=== PATIENT | male | born 1950 | race African-American/Black ===

== ENCOUNTER 2020-08-27 08:18 | Day surgery (SDC) | payer MEDICARE, MEDICAID ==
[2020-08-21 07:58] LABS: EOSINOPHILS % (AUTO) 1.2 % (0.0-3.0); HEMATOCRIT 41.4 % (42.0-52.0); HEMOGLOBIN 13.9 G/DL (14.2-18.0); LYMPHOCYTES % (AUTO) 24.4 % (20.0-45.0); MEAN CORPUSCULAR VOLUME 94 FL (80-99); MONOCYTES % (AUTO) 6.8 % (1.0-10.0); NEUTROPHILS % (AUTO) 66.6 % (45.0-75.0); PLATELET COUNT 228 K/UL (150-450); RED BLOOD COUNT 4.41 M/UL (4.70-6.10); RED CELL DISTRIBUTION WIDTH 12.9 % (11.6-14.8); WHITE BLOOD COUNT 5.8 K/UL (4.8-10.8)
[2020-08-21 08:10] LABS: CALCIUM 9.4 MG/DL (8.5-10.1); CREATININE 1.5 MG/DL (0.55-1.30); POTASSIUM 3.6 MMOL/L (3.5-5.1)
--- NOTE | 2020-08-22 20:59 | Pre-op HX & Phy Repo 2 SIG ---
DATE OF ADMISSION: 08/27/2020 PREOPERATIVE DIAGNOSIS: Macula-off retinal detachment, right eye. BRIEF NOTE: This is the first [facility] admission for patient who is a very nice 69-year-old gentleman who complained of sudden loss of vision in the right eye starting over 3 weeks ago. He was found to have a bullous macula-off retinal detachment on that side. He is admitted for surgery. PAST OCULAR HISTORY: Remarkable for cataract surgery done in both eyes with the right eye being done in March of 2020, in the left eye in 2016. PAST MEDICAL HISTORY: Remarkable for high blood pressure and elevated cholesterol. MEDICATIONS: He says he is taking no medications at this time. ALLERGIES: He has no known allergies. PHYSICAL EXAMINATION: Best vision at the time of the visit was light perception with projection in the right eye and 20/30 in the left with pressures of 16. The anterior segment on the right showed a posterior chamber lens in good position. Similar finding was seen on the left. Visual dumont were remarkable only for light perception on the right. The left showed full dumont. There was an afferent pupillary defect on the right. Funduscopic examination of the right eye showed a large retinal detachment, mainly superiorly that extended through the macula. A small horseshoe tear was noted at the 12:30 position just anterior to the equator. The left fundus was undilated at the patient's request. Through the undilated pupil, the retina was all attached. An ultrasound done on the right eye confirmed the presence of the retinal detachment without masses. ASSESSMENT: Total retinal detachment, right eye. PLAN: The plan is to perform a pars plana vitrectomy with endolaser, endo drainage, and gas fluid exchange. A scleral buckle will be placed if inferior pathology is found. The risks and benefits of surgery have been gone over with the patient with potential for infection, hemorrhage, glaucoma, and remote possibility of loss of the eye. The need for additional surgeries was discussed. The patient understands and consents to the surgery, which will be performed on Tuesday morning. Damien Kilgore M.D. DR: SAMMY JOB#: [id number] CC:
[2020-08-27] VITALS (8 sets, daily range): BP systolic 143–186; BP diastolic 87–97
[~2020-08-27] VITALS: Ht 191.8 cm; Wt 72.6 kg
[~2020-08-27 08:18] MED LIST: prednisoLONE acetate 1% Opth Susp 1ml RIGHT EYE SCH
[2020-08-27] MEDS ORDERED: Phenylephrine 2.5% Op 2ml Soln ONE (08:36)
[2020-08-27] MEDS ORDERED: Cyclopentolate 2% Opth Sol ONE (08:36)
[2020-08-27] MEDS ORDERED: Vigamox Opth Soln 3ml ONE (08:36)
[2020-08-27] MEDS ORDERED: Flurbiprofen 0.03% Opth Sol 2.5ml ONE (08:36)
[2020-08-27] MEDS: Vigamox Opth Soln 3ml RIGHT EYE SCH ×3 (08:47→09:01)
[2020-08-27] MEDS: Flurbiprofen 0.03% Opth Sol 2.5ml RIGHT EYE SCH ×3 (08:47→09:01)
[2020-08-27] MEDS: Phenylephrine 2.5% Op 2ml Soln RIGHT EYE SCH ×3 (08:47→09:01)
[2020-08-27] MEDS: Cyclopentolate 2% Opth Sol RIGHT EYE SCH ×3 (08:48→09:01)
[2020-08-27] MEDS ORDERED: CHOLESTEROL MED PO (08:52)
[2020-08-27] MEDS ORDERED: BP MED PO (08:52)
[2020-08-27] MEDS ORDERED: PLAVIX75 MG ORAL (08:52)
[2020-08-27] MEDS ORDERED: EPINEPHrine 1mg/1ml Amp ONE (09:37)
[2020-08-27] MEDS ORDERED: Kenalog-10 5ml Inj ONE (09:37)
[2020-08-27] MEDS ORDERED: Kenalog-40 1ml Vial ONE (09:37)
[2020-08-27] MEDS ORDERED: Midazolam 2mg/2ml Inj ONE (09:37)
[2020-08-27] MEDS ORDERED: prednisoLONE acetate 1% Opth Susp 1ml ONE (09:37)
[2020-08-27] MEDS ORDERED: Lidocaine 2% MPF 5ml Vial INJ ONE (09:37)
[2020-08-27] MEDS ORDERED: Tetracaine 0.5% Opth 4ml Soln ONE (09:38)
[2020-08-27] MEDS ORDERED: BSS 500ml btl ONE (09:38)
[2020-08-27] MEDS ORDERED: Maxitrol Opth Oint 3.5gm ONE (09:38)
[2020-08-27] MEDS ORDERED: BSS 15ml BTL ONE (09:38)
[2020-08-27] MEDS ORDERED: Povidone-Iodine 5% opth solution ONE (09:38)
[2020-08-27] MEDS ORDERED: Bupivacaine 0.75% 30ml vial INJ ONE (09:39)
[2020-08-27] MEDS ORDERED: Triamcinolone 40mg/ml PF Vial ONE (09:39)
[2020-08-27] MEDS ORDERED: Lidocaine 1% MPF 10mg/ml 5ml ONE (09:39)
[2020-08-27] MEDS ORDERED: Sodium Hyaluronate 10 mg/ml 0.85ml ONE (09:39)
[2020-08-27] MEDS ORDERED: Indocyanine Green 25mg Inj INJ ONE (09:45)
--- NOTE | 2020-08-27 10:04 | Pre-Procedure Note/Attestation ---
Pre-Procedure Note/Attestation Complete Prior to Procedure Planned Procedure: right Procedure Narrative: PPV, endolaser, endodrainage, gas-fluid exchange RIGHT eye Indications for Procedure Pre-Operative Diagnosis: Retinal detachment RIGHT eye Attestation I attest that I discussed the nature of the procedure; its benefits; risks and complications; and alternatives (and the risks and benefits of such alternatives), prior to the procedure, with the patient (or the patient's legal asset protection representative). I attest that, if there was a reasonable possibility of needing a blood transfusion, the patient (or the patient's legal asset protection representative) was given the [facility] standardized written summary, pursuant to the Edwin Beny Blood Safety Act ([place] Health and Safety Code # 1645, as amended). I attest that I re-evaluated the patient just prior to the surgery and that ther e has been no change in the patient's H&P, except as documented below: Damien Kilgore MD Aug 27, 2020 10:04
[2020-08-27] MEDS ORDERED: HYDROcodone/Acetamin 5/325 tab ORAL PRN (10:15)
--- NOTE | 2020-08-27 11:08 | Anethesia Preoperative Eval ---
Anesthesia Pre-op PMH/ROS General Date of Evaluation: Aug 27, 2020 Time of Evaluation: 10:02 Anesthesiologist: Jahaira ASA Score: ASA 3 Mallampati Score Class I : Soft palate, uvula, fauces, pillars visible Class II: Soft palate, uvula, fauces visible Class III: Soft palate, base of uvula visible Class IV: Only hard plate visible Mallampati Classification: Class II Surgeon: Magui Diagnosis: R eye retinal detouchment Surgical Procedure: R eye PPV Anesthesia History: none Social History: smoking - h/o Family History: no anesthesia problems Allergies: Coded Allergies: No Known Allergies (Unverified , 08/27/20) Medications: see eMAR Patient NPO?: Yes Past Medical History Cardiovascular: Reports: HTN; Denies: CAD, [place], valve dz, arrhythmia, other Pulmonary: Denies: asthma, COPD, DANIELA, other Gastrointestinal/Genitourinary: Reports: GERD, CRI - elevated Cr.; Denies: ESRD, other Neurologic/Psychiatric: Reports: CVA - R side weakness, depression/anxiety; Denies: dementia, TIA, other Endocrine: Reports: hypothyroidism HEENT: Reports: cataract (L), cataract (R) - s/p bilateral Sx Hematology/Immune: Denies: anemia, DVT, bleeding disorder, other Musculoskeletal/Integumentary: Reports: OA; Denies: RA, DJD, DDD, edema, other PMH Narrative: as above PSxH Narrative: bilateral cataracts Anesthesia Pre-op Phys. Exam Physician Exam Last Vital Signs Date Time Temp Pulse Resp B/P (MAP) Pulse Ox O2 Delivery O2 Flow Rate FiO2 08/27/20 09:06 97.1 55 20 186/97 97 Room Air Constitutional: NAD Neurologic: other Cardiovascular: RRR, no M/R/G Respiratory: CTA Gastrointestinal: S/NT/ND Airway Exam Mallampati Score: Class II MO: limited Neck: stiff ROM: limited Teeth: missing Dentures: no upper, no lower Anesthesia Pre-op A/P Labs see chart Studies Pre-op Studies: EKG - Sr Risk Assessment & Plan Assessment: ASA 3 Plan: GA with LMA, surgeon request Status Change Before Surgery: No Jasper Campo MD Aug 27, 2020 11:08
[2020-08-27] MEDS ORDERED: fentaNYL 100 mcg/2 mL IV PRN (11:15)
[2020-08-27] MEDS ORDERED: LR 1000ml 1,000 ML IVLG SCH (11:15)
--- NOTE | 2020-08-27 12:04 | Brief Operative Note ---
Immediate Post Operative Note Operative Note Chief Complaint: Loss of vision Right eye Pre-op Diagnosis: Retinal detachment RIGHT eye Procedure: PPV, endodrainage, endolaser (1379 spots), gas fluid exchange RIGHT eye Post-op Diagnosis: same as pre-op Surgeon: Magui Movie Critic: baylee Anesthesiologist: Jahaira Anesthesia: general Specimen: none Complications: none Condition: stable Fluids: per anesthesia Estimated Blood Loss: none Drains: none Implant(s) used?: No Damien Kilgore MD Aug 27, 2020 12:04
--- NOTE | 2020-08-27 12:09 | Immediate Post-Op Evaluation ---
Immediate Post-Op Evalulation Immediate Post-Op Evalulation Procedure: R eye PPV laser treatment fluid to gas exchange Date of Evaluation: Aug 27, 2020 Time of Evaluation: 12:08 IV Fluids: 400 Blood Products: none Estimated Blood Loss: min Urinary Output: none Blood Pressure Systolic: 154 Blood Pressure Diastolic: 86 Pulse Rate: 84 Respiratory Rate: 20 O2 Sat by Pulse Oximetry: 99 Temperature (Fahrenheit): 97.7 Pain Score (1-10): 1 Nausea: No Vomiting: No Complications none Patient Status: reacts, patent, none Hydration Status: adequate Jasper Campo MD Aug 27, 2020 12:09
--- NOTE | 2020-08-27 12:44 | Operative Note - Dictated ---
DATE OF OPERATION: 08/27/2020 PREOPERATIVE DIAGNOSIS: Retinal detachment, right eye. POSTOPERATIVE DIAGNOSIS: Retinal detachment, right eye. PROCEDURES: 1. Pars plana vitrectomy. 2. Endo drainage. 3. Endolaser. 4. Gas fluid exchange, right eye. SURGEON: Damien Kilgore M.D. BOOSTER STATION OPERATOR: None. ANESTHESIA: LMA general. ANESTHESIOLOGIST: Jasper Campo MD. JUSTIFICATION FOR SURGERY: This 69-year-old gentleman with history of cataract surgery, noted a 3-week history of progressively decreasing vision and was found to have retinal detachment. BRIEF NOTE: The patient was brought to the operative room, placed on operating room table in supine position. After a time-out was performed and agreed upon by the staff, general LMA anesthesia was induced by Dr. Campo. The patient was then given a retrobulbar block roughly 5 mL to limit intraoperative anesthetics and postoperative pain. He was then prepped and draped in normal manner. A lid speculum inserted into the right eye. Using a 23-gauge trocar system, cannulas were placed in all except infranasal quadrant. Infusion secured inferotemporally. Vitrectomy was begun posterior to the lens taking care to avoid contact. With the wide-angle viewing system, a central core vitrectomy was done with gentle shaving of the peripheral vitreous leaving a small vitreous skirt. Scleral depression showed a horseshoe tear at about the 11:30 position. This position was noted. Additional patches of lattice degeneration were seen superiorly and inferiorly but no round holes or tears. The Endo cautery was then used to perform a drainage site superior and slightly nasal to the optic nerve. An air-fluid exchange was performed draining subretinal fluid and the flattening the retina nicely. Once this was completed, Endolaser was performed with the aid of a lighted laser probe surrounding the retinal breaks above and patches of lattice degeneration both above and below. Again scleral depression was performed. No other breaks were seen. Laser was then used after further drainage to surround the posterior retinotomy with three rows of laser. A total of 1379 spots were used. At this juncture, a gas-gas exchange was performed at 24% SF6. Once this was completed, the eye was left normotensive as the cannulas were removed and the sclerotomy was closed with 8-0 Vicryl. Please note that during procedure because of clouding, the corneal epithelium was removed with a 69 [place] blade. Subconjunctival Decadron and gentamicin were then injected and topical prednisolone, moxifloxacin, atropine drops, and Maxitrol ointment were instilled. The eye was patched and shielded and the patient was taken to recovery in excellent condition to be placed in a face-down position. There were no complications. Damien Kilgore M.D. DR: Oly JOB#: [id number] CC: Damien Kilgore M.D.; Fax#: [phone]
--- NOTE | 2020-08-27 13:04 | 48 Hour Post Anesthesia Eval ---
Post Anesthesia Evaluation Procedure: R eye PPV laser treatment fluid to gas exchange Date of Evaluation: Aug 27, 2020 Time of Evaluation: 13:03 Blood Pressure Systolic: 148 0: 76 Pulse Rate: 68 Respiratory Rate: 18 Temperature (Fahrenheit): 97.5 O2 Sat by Pulse Oximetry: 99 Airway: patent Nausea: No Vomiting: No Pain Intensity: 1 Hydration Status: adequate Cardiopulmonary Status: stable Mental Status/LOC: patient returned to baseline Follow-up Care/Observations: n/a Post-Anesthesia Complications: none Follow-up care needed: ready to discharge Jasper Campo MD Aug 27, 2020 13:04
== END 2020-08-27 13:30 | disposition home or self-care (01) ==
LOC: SUR 08:18
DX: H33.051 Total retinal detachment, right eye (principal); E78.00 Pure hypercholesterolemia, unspecified; I10 Essential (primary) hypertension; K21.9 Gastro-esophageal reflux disease without esophagitis; F32.9 Major depressive disorder, single episode, unspecified; F41.9 Anxiety disorder, unspecified; G81.91 Hemiplegia, unspecified affecting right dominant side; E03.9 Hypothyroidism, unspecified; M19.90 Unspecified osteoarthritis, unspecified site; Z87.891 Personal history of nicotine dependence
CPT/HCPCS: 36415; 67039; 80048; 85025; 94003; J0171; J1100; J2250; J2704; J3470; J3490; U0004; 94150; J3300